=== PATIENT | male | born 1970 | race African-American/Black ===

== ENCOUNTER 2024-08-09 18:46 | Emergency (ER) | payer OTHER ==
[~2024-08-09] VITALS: Ht 175.3 cm; Wt 127.0 kg
[2024-08-09 18:57] VITALS: BP 161/92; PULSE 71; RESP 18; TEMP 36.7; O2SAT 98
[2024-08-09] MEDS: CYCLOBENZAPRINE 10MG TABLET PO ONE (19:20)
[2024-08-09] MEDS ORDERED: LIDO700A30 TP (21:04)
[2024-08-09] MEDS ORDERED: CYCL10TA21 MT (21:04)
== END 2024-08-09 21:13 | disposition home or self-care (01) ==
LOC: ER 18:46
DX: T14.8XXA Other injury of unspecified body region, initial encounter (principal); I48.91 Unspecified atrial fibrillation; Z79.01 Long term (current) use of anticoagulants; V43.52XA Car driver injured in collision with other type car in traffic accident, initial encounter; Y93.89 Activity, other specified; Y92.410 Unspecified street and highway as the place of occurrence of the external cause; Y99.8 Other external cause status
CPT/HCPCS: 99284